=== PATIENT | female | born 1995 | race Caucasian/White ===

== ENCOUNTER 2017-10-13 21:26 | Emergency (ER) | payer SELFPAY ==
[2017-10-13 22:38] VITALS: BP 111/57; PULSE 83; RESP 16; TEMP 98.1; O2SAT 100
[2017-10-13] MEDS ORDERED: SODIUM CHLOR 0.9% 1000 ML INJ 1,000 ML IV ONE (23:33)
--- NOTE | 2017-10-13 23:48 | PD ---
HPI Chief Complaint: Related Problem Time Seen by Provider: 23:24 Travel History International Travel<30 days: No Contact w/Intl Traveler<30days: No Traveled to known affect area: No History of Present Illness HPI The patient is a 22-year-old female who presents to the emergency department for vaginal bleeding and . The patient's last menstrual cycle was August 24, 2017. Patient is who has had 3 home tests which were positive, however, has not yet followed up with OB. The patient has an appointment later this month with an enrobing machine feeder at [facility]. The patient states she developed lower abdominal pain and cramping 2 hours prior to arrival. She does note some vaginal bleeding with a few small blood clots and lower abdominal cramping that radiates to the back. She denies any dysuria, frequency, urgency. She does complain of mild nausea without any vomiting. Symptoms are moderate. PFSH Past Medical History Medical History: Denies Significant Hx ?: LMP: 08/24/17 Past Surgical History Narrative Surgical Nasal surgery, tonsillectomy Social History Tobacco Use: No Allergies-Medications (Allergen,Severity, Reaction): Coded Allergies: No Known Allergies (Unverified , 10/13/17) Review of Systems Except as stated in HPI: all other systems reviewed are Neg Gastrointestinal: Positive: Nausea, Abdominal Pain, No: Vomiting, Diarrhea Genitourinary: Positive: Pelvic Pain, Vaginal Bleeding, No: Dysuria, Discharge Physical Exam Narrative GENERAL: Awake, alert, pleasant 22-year-old female who appears her stated age and is in no acute respiratory distress. SKIN: Focused skin assessment warm/dry. HEAD: Atraumatic. Normocephalic. EYES: No injection or drainage. ENT: No nasal bleeding or discharge. Mucous membranes pink and moist. NECK: Trachea midline. No JVD. GASTROINTESTINAL: Abdomen soft, non-tender, nondistended. No guarding or rigidity. Back: No CVA tenderness. Pelvic: The exam was performed in the presence of a female nurse. MUSCULOSKELETAL: No obvious deformities. No clubbing. No cyanosis. No edema. NEUROLOGICAL: Awake and alert. No obvious cranial nerve deficits. Motor grossly within normal limits. Normal speech. PSYCHIATRIC: Appropriate mood and affect; insight and judgment normal. Data Data Last Documented VS Vital Signs Date Time Temp Pulse Resp B/P (MAP) Pulse Ox O2 Delivery O2 Flow Rate FiO2 10/13/17 22:38 98.1 83 16 111/57 (75) 100 Orders Orders Beta Hcg (Quant/Titer) (10/13/17 23:33) Complete Blood Count With Diff (10/13/17 23:33) Basic Metabolic Panel (Bmp) (10/13/17 23:33) Complete Rh (10/13/17 23:33) Urinalysis - C+S If Indicated (10/13/17 23:33) Sodium Chlor 0.9% 1000 Ml Inj (Ns 1000 M (10/13/17 23:33) Ed Urine Pregnancytest Poc (10/13/17 23:33) Us Pelvis (Ques Pr/Ect)W Trans (10/14/17 ) Acetaminophen (Tylenol) (10/14/17 00:30) Morphine Inj (Morphine Inj) (10/14/17 01:30) Ondansetron Odt (Zofran Odt) (10/14/17 01:30) Morphine Inj (Morphine Inj) (10/14/17 03:00) Labs Laboratory Tests Test 10/13/17 23:30 10/13/17 23:40 Urine Color YELLOW Urine Turbidity CLEAR Urine pH 7.0 Urine Specific [place] 1.022 Urine Protein NEG mg/dL Urine Glucose (UA) NEG mg/dL Urine Ketones NEG mg/dL Urine Occult Blood SMALL Urine Nitrite NEG Urine Bilirubin NEG Urine Urobilinogen LESS THAN 2.0 MG/DL Urine Leukocyte Esterase NEG Urine RBC 20 /hpf Urine WBC LESS THAN 1 /hpf Urine Bacteria RARE /hpf Microscopic Urinalysis Comment CULT NOT INDICATED White Blood Count 11.2 TH/MM3 Red Blood Count 4.70 MIL/MM3 Hemoglobin 12.9 GM/DL Hematocrit 39.3 % Mean Corpuscular Volume 83.6 FL Mean Corpuscular Hemoglobin 27.5 PG Mean Corpuscular Hemoglobin Concent 32.9 % Red Cell Distribution Width 14.7 % Platelet Count 233 TH/MM3 Mean Platelet Volume 8.0 FL Neutrophils (%) (Auto) 72.3 % Lymphocytes (%) (Auto) 18.6 % Monocytes (%) (Auto) 7.7 % Eosinophils (%) (Auto) 0.9 % Basophils (%) (Auto) 0.5 % Neutrophils # (Auto) 8.1 TH/MM3 Lymphocytes # (Auto) 2.1 TH/MM3 Monocytes # (Auto) 0.9 TH/MM3 Eosinophils # (Auto) 0.1 TH/MM3 Basophils # (Auto) 0.1 TH/MM3 CBC Comment DIFF FINAL Differential Comment Blood Urea Nitrogen 17 MG/DL Creatinine 0.74 MG/DL Random Glucose 91 MG/DL Calcium Level 9.3 MG/DL Sodium Level 138 MEQ/L Potassium Level 3.5 MEQ/L Chloride Level 108 MEQ/L Carbon Dioxide Level 22.0 MEQ/L Anion Gap 8 MEQ/L Estimat Glomerular Filtration Rate 96 ML/MIN Human Chorionic Gonadotropin, Quant 91670 MIU/ML [facility] Medical Decision Making Medical Screen Exam Complete: Yes Emergency Medical Condition: Yes Medical Record Reviewed: Yes Interpretation(s) Laboratory Tests Test 10/13/17 23:30 10/13/17 23:40 Urine Color YELLOW Urine Turbidity CLEAR Urine pH 7.0 Urine Specific [place] 1.022 Urine Protein NEG mg/dL Urine Glucose (UA) NEG mg/dL Urine Ketones NEG mg/dL Urine Occult Blood SMALL Urine Nitrite NEG Urine Bilirubin NEG Urine Urobilinogen LESS THAN 2.0 MG/DL Urine Leukocyte Esterase NEG Urine RBC 20 /hpf Urine WBC LESS THAN 1 /hpf Urine Bacteria RARE /hpf Microscopic Urinalysis Comment CULT NOT INDICATED White Blood Count 11.2 TH/MM3 Red Blood Count 4.70 MIL/MM3 Hemoglobin 12.9 GM/DL Hematocrit 39.3 % Mean Corpuscular Volume 83.6 FL Mean Corpuscular Hemoglobin 27.5 PG Mean Corpuscular Hemoglobin Concent 32.9 % Red Cell Distribution Width 14.7 % Platelet Count 233 TH/MM3 Mean Platelet Volume 8.0 FL Neutrophils (%) (Auto) 72.3 % Lymphocytes (%) (Auto) 18.6 % Monocytes (%) (Auto) 7.7 % Eosinophils (%) (Auto) 0.9 % Basophils (%) (Auto) 0.5 % Neutrophils # (Auto) 8.1 TH/MM3 Lymphocytes # (Auto) 2.1 TH/MM3 Monocytes # (Auto) 0.9 TH/MM3 Eosinophils # (Auto) 0.1 TH/MM3 Basophils # (Auto) 0.1 TH/MM3 CBC Comment DIFF FINAL Differential Comment Blood Urea Nitrogen 17 MG/DL Creatinine 0.74 MG/DL Random Glucose 91 MG/DL Calcium Level 9.3 MG/DL Sodium Level 138 MEQ/L Potassium Level 3.5 MEQ/L Chloride Level 108 MEQ/L Carbon Dioxide Level 22.0 MEQ/L Anion Gap 8 MEQ/L Estimat Glomerular Filtration Rate 96 ML/MIN Human Chorionic Gonadotropin, Quant 06688 MIU/ML Differential Diagnosis Differential diagnosis includes ectopic , threatened AB, incomplete AB , normal , UTI, vaginitis, cervicitis. Narrative Course Labs are drawn and sent. Bedside UA test was performed, was positive. Therefore, quantitative beta-hCG was sent to lab. Ultrasound was ordered to evaluate for ectopic . A pelvic exam was completed in the presence of a female nurse. The patient's blood type was O+, therefore, no indication for RhoGam. Beta-hCG was greater than 10,000, formal ultrasound was ordered. Ultrasound does not reveal an IUP, there is no significant free fluid , however, the endometrial stripe was thickened, possibly secondary to recent with active spontaneous . The patient was provided morphine and Tylenol for pain. Speculum examination was performed which reveals a dilated cervix with visible blood clots within the cervix. Most likely this represents an incomplete AB. The patient was redosed with morphine, is advised to follow-up with her enrobing machine feeder. She is advised that she will have vaginal bleeding for the next several days and may pass tissue consistent with the spontaneous . She is advised if her symptoms worsen or progress to return to the emergency department. Diagnosis Primary Impression: Spontaneous Patient Instructions: General Instructions Additional Instructions: Medications as directed. Follow-up with your enrobing machine feeder. Please provide the patient a copy of her ultrasound results and lab results at discharge. Return if symptoms worsen or progress. Med/Other Pt SpecificInfo: Prescription(s) given Scripts Hydrocodone-Acetaminophen ([place]) 5 Mg-325 Mg Tab 1 TAB PO Q6H Y for PAIN, #15 TAB 0 Refills Prov: Kamar Cooper MD 10/14/17 Disposition: 01 DISCHARGE HOME Condition: Stable Kamar Cooper MD Oct 13, 2017 23:48
[2017-10-13 23:55] LABS: AUTOMATED NEUTROPHIL # 8.1 TH/MM3 (1.8-7.7); BASOPHIL # 0.1 TH/MM3 (0-0.2); BASOPHIL % 0.5 % (0.0-2.0); EOSINOPHIL # 0.1 TH/MM3 (0-0.4); EOSINOPHIL % 0.9 % (0.0-4.0); HEMATOCRIT 39.3 % (35.0-46.0); HEMOGLOBIN 12.9 GM/DL (11.6-15.3); LYMPH % 18.6 % (9.0-44.0); LYMPHOCYTE # 2.1 TH/MM3 (1.0-4.8); MEAN CELL VOLUME 83.6 FL (80.0-100.0); MEAN CORPUSCULAR HEMOGLOBIN 27.5 PG (27.0-34.0); MEAN CORPUSCULAR HGB CONC 32.9 % (32.0-36.0); MONO % 7.7 % (0.0-8.0); MONOCYTE # 0.9 TH/MM3 (0-0.9); NEUT % 72.3 % (16.0-70.0); PLATELET COUNT 233 TH/MM3 (150-450); RED CELL DISTRIBUTION WIDTH 14.7 % (11.6-17.2); WHITE BLOOD COUNT 11.2 TH/MM3 (4.0-11.0)
[2017-10-14 00:06] LABS: BACTERIA, URINE RARE /hpf; BILIRUBIN, URINE NEG (NEG); BLOOD, URINE SMALL (NEG); GLUCOSE,URINE NEG (NEG); KETONE, URINE NEG (NEG); NITRITE,URINE NEG (NEG); URINE COLOR YELLOW (YELLW/STRAW); URINE LEUKOCYTE ESTERASE NEG (NEG)
[2017-10-14 00:21] LABS: CALCIUM 9.3 MG/DL (8.5-10.1); CREATININE 0.74 MG/DL (0.50-1.00)
[2017-10-14] MEDS ORDERED: ACETAMINOPHEN 325 MG TAB PO ONE (00:30)
--- NOTE | 2017-10-14 01:23 | RADRPT ---
EXAM DATE: 10/14/2017 1:16 AM EDT AGE/SEX: 22 years / Female INDICATIONS: Heavy vaginal bleeding x 3 hours. CLINICAL DATA: This is the patient's initial encounter. Patient reports that signs and symptoms have been present for 1 day and indicates a pain score of 7/10. MEDICAL/SURGICAL HISTORY: . Tonsillectomy. COMPARISON: No prior [facility] exams available for comparison. MEASUREMENTS: Uterus:__9.6 x 1.7 x 5.5 cm Endometrial Stripe:__>20 mm Right Ovary:__ 3.5 x 1.5 x 1.7 cm Left Ovary:__ 3.3 x 2.0 x 1.2 cm FINDINGS: Uterus: The myometrium has homogeneous echotexture without mass. The endometrial appears to be thic kened. No definite gestational sac is demonstrated. Right Ovary: The right ovary is normal in size. There is a complex area measuring 1.8 cm. Possible r uptured corpus luteal cyst versus hemorrhagic cyst. Left Ovary: The left ovary is unremarkable. Other: No free fluid. CONCLUSION: 1. There is thickening of the endometrial lining. Otherwise the endometrial cavity is empty. No gest ational sac is demonstrated. In a patient with positive test this could represent an early IUP not yet visualized, early ectopic not visualized versus recent spontaneous . Therefore, r ecommend serial beta hCGs and follow-up ultrasound if indicated. Electronically signed by: Soy Ramsey MD 10/14/2017 1:22 AM EDT
[2017-10-14] MEDS ORDERED: ONDANSETRON ODT 4 MG TAB PO ONE (01:30)
[2017-10-14] MEDS ORDERED: MORPHINE SULFATE 4 MG/ML INJ IV PUSH ONE ×2 (01:30→03:00)
[2017-10-14] MEDS ORDERED: NORC5TAB PO (03:03)
== END 2017-10-14 03:21 | disposition home or self-care (01) ==
LOC: NEPE 21:26
DX: O03.9 Complete or unspecified spontaneous abortion without complication (principal)
CPT/HCPCS: 76700; 76817; 80048; 81001; 84702; 84703; 85025; 86901; 96361; 96374; 96376; 99284; J2270; J7030